=== PATIENT | female | born 1955 | race Caucasian/White ===

== ENCOUNTER 2017-03-13 09:31 | Day surgery (SDC) | payer OTHER, SELFPAY | END 2017-03-13 15:30 | disposition home or self-care (01) | PROVIDERS: Family Provider Physician Assistant; Visit Provider Orthopaedic Surgery | DX: M75.122 Complete rotator cuff tear or rupture of left shoulder, not specified as traumatic (principal); M75.22 Bicipital tendinitis, left shoulder; M75.42 Impingement syndrome of left shoulder; M75.52 Bursitis of left shoulder; Y99.0 Civilian activity done for income or pay | CPT/HCPCS: 29828; 29823; 81001; 96375; J2405 ==

== ENCOUNTER → 2017-06-08 09:09 | Outpatient (CLI) | payer OTHER, SELFPAY ==
--- NOTE | 2017-06-08 09:13 | XR_ITS ---
XR shoulder LT min 2V HISTORY: Left shoulder pain and swelling ITS.REASON: postoperative; hit shoulder again, swelling ORDERING PHYSICIAN: Neo Patel MD PATIENT AGE: 61 years COMPARISON: 01/26/2017 FINDINGS: The glenohumeral joint is unremarkable. The remaining subacromial stenosis with low lying distal clavicle and low-lying acromium appears somewhat more extensive on today's exam compared to the previous study there is minimal inferior displacement of the distal aspect of the clavicle. IMPRESSION: Persistent subacromial stenosis with low-lying distal clavicle and acromion which appears more prominent on today's exam
== END ==
PROVIDERS: PCP Physician Assistant; Visit Provider Orthopaedic Surgery
DX: Z48.89 Encounter for other specified surgical aftercare (principal); R60.9 Edema, unspecified; M25.512 Pain in left shoulder
CPT/HCPCS: 73030

== ENCOUNTER → 2017-09-07 14:20 | Outpatient (REF) | payer SELFPAY ==
[2017-09-07 18:31] LABS: Alanine Aminotransferase 17 U/L (12-78); Albumin Level 4.4 gm/dL (3.4-5.0); Albumin/Globulin Ratio 1.5 (1.1-1.8); Alkaline Phosphatase 59 U/L (46-116); Anion Gap 11.1 mEq/L (5-15); Aspartate Amino Transferase 21 U/L (15-37); Bilirubin,Total 0.7 mg/dL (0.2-1.0); Blood Urea Nitrogen 12 mg/dL (7-18); Carbon Dioxide 30 mmol/L (21.0-32.0); Chloride 106 mmol/L (98-107); Creatinine,Serum 0.84 mg/dL (0.55-1.02); Estimated Glomerular Filt Rate 69 ml/min (>60); GFR (African American) 84 ML/MIN (>60); Globulin 2.9 gm/dl (1.3-3.2); Glucose 78 mg/dL (74-106); Potassium 4.1 mmoL/L (3.5-5.1); Sodium 143 mmol/L (136-145); Total Protein,Serum 7.3 gm/dL (6.4-8.2)
== END ==
LOC: LAB 14:20
PROVIDERS: Visit Provider Nurse Practitioner Family
DX: I10 Essential (primary) hypertension (principal)
CPT/HCPCS: 80053

== ENCOUNTER → 2017-11-28 12:10 | Outpatient (CLI) | payer OTHER, SELFPAY ==
--- NOTE | 2017-11-28 12:13 | XR_ITS ---
XR ribs RT min 3V w CXR1V HISTORY: Soft tissue mass right lower rib area ITS.REASON: RIGHT POSTERIOR RIB PAIN ORDERING PHYSICIAN: TAY Munguia PATIENT AGE: 61 years Comparison: 09/14/2017 FINDINGS: A frontal view of the chest shows COPD with chronic changes in the lung bases. Multiple views of the right ribs were obtained. No fracture or dislocation. No lytic or blastic change. IMPRESSION: Negative RIBS. If pain persists, consider follow-up exam in 7-[address] with 3-D reformats.
== END ==
PROVIDERS: PCP Physician Assistant; Visit Provider Physician Assistant
DX: R07.81 Pleurodynia (principal)
CPT/HCPCS: 71101

== ENCOUNTER → 2018-05-11 11:23 | Outpatient (CLI) | payer OTHER, SELFPAY ==
--- NOTE | 2018-05-11 11:43 | XR_ITS ---
XR foot LT min 3V HISTORY: Foot pain ITS.REASON: ARTHRITIS OF MULT JOINTS ORDERING PHYSICIAN: Vince Mancia MD PATIENT AGE: 62 years COMPARISON: None FINDINGS: No fracture or dislocation. No lytic or blastic change. There is normal mineralization.. Minimal osteoarthritic changes involve the first metatarsophalangeal joint with mild soft tissue prominence medially and minimal hallux valgus. There is a small calcaneal spur nonspecific. There is minimal nonspecific flattening of the head of the second metatarsal IMPRESSION: Mild hallux valgus with bunion formation and mild osteoarthritis of the first MTP joint
--- NOTE | 2018-05-11 11:43 | XR_ITS ---
XR hand LT min 3V HISTORY: Left hand pain ITS.REASON: ARTHRITIS OF MULT JOINTS ORDERING PHYSICIAN: Vince Mancia MD PATIENT AGE: 62 years COMPARISON: None FINDINGS: There are severe osteoarthritic changes at the first metacarpal carpal joint with bony hypertrophic change and mild lateral subluxation of the proximal aspect of the first metacarpal. No fracture or dislocation. No bony erosive process. 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
--- NOTE | 2018-05-11 11:43 | XR_ITS ---
XR hand RT min 3V HISTORY: Pain ITS.REASON: ARTHRITIS OF MULT JOINTS ORDERING PHYSICIAN: Vince Mancia MD PATIENT AGE: 62 years COMPARISON: None FINDINGS: There are severe osteoarthritic changes of the first metacarpal carpal joint with bony hypertrophic change and mild lateral subluxation of the first metacarpal. No bony erosive process evident. 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
--- NOTE | 2018-05-11 11:43 | XR_ITS ---
XR foot RT min 3V HISTORY: ITS.REASON: ARTHRITIS OF MULT JOINTS ORDERING PHYSICIAN: Vince Mancia MD PATIENT AGE: 62 years COMPARISON: 11/14/2016 FINDINGS: Minimal hallux valgus and mild hypertrophic change of the soft tissues at the first metatarsophalangeal junction medially with minimal osteoarthritic change of the first MTP joint. Small calcaneal spur is present. No fracture or dislocation. There is minimal flattening of the head of the second and third metatarsals which had a similar appearance on the previous exam. No other significant anomalies. IMPRESSION: Minimal hallux valgus with minimal bunion formation and minimal osteoarthritis of the first MTP joint. Overall no significant change from 11/14/2016
[2018-05-11 12:07] LABS: Basophils # 0.1 K/mm3 (0-0.2); Basophils % 0.9 % (0.1-2.0); Eosinophils # 0.1 K/mm3 (0.0-0.4); Eosinophils % 1.7 % (0.1-12.0); Hematocrit 38.6 % (37.0-47.0); Hemoglobin 12.1 g/dL (12.2-16.2); Lymphocytes % 37.3 % (10-50); Mean Corpuscular HGB Conc 31.5 g/dL (31.8-35.4); Mean Corpuscular Hemoglobin 32.4 pg (27.0-31.2); Mean Platelet Volume 6.9 fl (7.4-10.4); Monocytes # 0.3 K/mm3 (0.1-1.0); Monocytes % 6.4 % (1.7-9.3); Neutrophils # 2.8 K/mm3 (1.8-7.8); Neutrophils % 53.8 % (37.0-80.0); Platelet Count 269 K/mm3 (142-424); Red Blood Count 3.74 M/mm3 (4.20-5.40); Red Cell Distribution Width 13.7 % (11.5-17.5); White Blood Count 5.3 K/mm3 (4.8-10.8)
[2018-05-11 14:04] LABS: Alanine Aminotransferase 19 U/L (12-78); Albumin Level 3.9 gm/dL (3.4-5.0); Albumin/Globulin Ratio 1.3 (1.1-1.8); Alkaline Phosphatase 60 U/L (46-116); Anion Gap 12.1 mEq/L (5-15); Aspartate Amino Transferase 21 U/L (15-37); Bilirubin,Total 0.7 mg/dL (0.2-1.0); Blood Urea Nitrogen 20 mg/dL (7-18); Calcium 9.8 mg/dL (8.5-10.1); Carbon Dioxide 27 mmol/L (21.0-32.0); Chloride 106 mmol/L (98-107); Creatinine,Serum 0.73 mg/dL (0.55-1.02); Estimated Glomerular Filt Rate 81 ml/min (>60); GFR (African American) 98 ML/MIN (>60); Globulin 3.1 gm/dl (1.3-3.2); Glucose 84 mg/dL (74-106); Potassium 4.1 mmoL/L (3.5-5.1); Sodium 141 mmol/L (136-145)
[2018-05-11 14:21] LABS: Erythrocyte Sedimentation Rate 19 mm/hr (0-30)
[2018-05-13 17:16] LABS: RA Latex Turbid. <10.0 IU/mL (0.0-13.9)
[2018-05-13 17:18] LABS: Anti-Cyclic Citrullinated Pept 5 units (0-19)
[2018-05-14 16:17] LABS: Anti-Centromere B Antibodies <0.2 AI (0.0-0.9); Anti-Jo-1 <0.2 AI (0.0-0.9); Anti-Smith Antibody <0.2 AI (0.0-0.9); Antichromatin Antibodies <0.2 AI (0.0-0.9); Antiscleroderma-70 Antibodies <0.2 AI (0.0-0.9); RNP Antibodies <0.2 AI (0.0-0.9); Sjogren's Anti-SS-A <0.2 AI (0.0-0.9); Sjogren's Anti-SS-B <0.2 AI (0.0-0.9)
[2018-05-14 16:48] LABS: Anti-DNA (DS) Ab Qn <1 IU/mL (0-9)
== END ==
PROVIDERS: PCP Internal Medicine Adolescent Medicine; Visit Provider Internal Medicine Adolescent Medicine
DX: M19.91 Primary osteoarthritis, unspecified site (principal)
CPT/HCPCS: 36415; 73130; 73630; 80053; 85025; 85651; 86200; 86225; 86235; 86431

== ENCOUNTER → 2018-06-18 12:19 | Outpatient (CLI) | payer OTHER, SELFPAY | PROVIDERS: PCP Internal Medicine Adolescent Medicine; Visit Provider Internal Medicine Adolescent Medicine | DX: R07.9 Chest pain, unspecified (principal) | CPT/HCPCS: 93005; 93017 ==